=== PATIENT | female | born 1985 | race Hispanic/Latino ===

== ENCOUNTER 2017-07-02 18:19 | Emergency (ER) | payer SELFPAY | END 2017-07-02 18:45 | disposition left against medical advice (07) | LOC: ED 18:19 | DX: Z53.21 Procedure and treatment not carried out due to patient leaving prior to being seen by health care provider (principal) ==

== ENCOUNTER 2017-08-27 09:58 | Emergency (ER) | payer SELFPAY ==
[2017-08-27 10:04] VITALS: BP 133/75
[2017-08-27 10:45] LABS: Basophils % (Auto) 0.5 % (0.0-1.8); Eosinophils % (Auto) 0.4 % (0.0-4.3); Hematocrit 41.5 % (30.3-42.9); Hemoglobin 14.3 gm/dl (10.1-14.3); Lymphocytes # (Auto) 1.7 K/mm3 (1.2-5.4); Lymphocytes % (Auto) 20.7 % (13.4-35.0); Mean Corpuscular HGB Conc 34 % (30-34); Mean Corpuscular Hemoglobin 32 pg (28-32); Mean Corpuscular Volume 94 fl (79-97); Monocytes # (Auto) 0.4 K/mm3 (0.0-0.8); Monocytes % (Auto) 4.5 % (0.0-7.3); Platelet Count 240 K/mm3 (140-440); Red Blood Count 4.41 M/mm3 (3.65-5.03); Red Cell Distribution Width 13.4 % (13.2-15.2)
[2017-08-27 10:50] LABS: Bacteria,Urine 3+ /HPF (Negative); Bilirubin,Urine NEG (Negative); Blood,Urine LG (Negative); Color,Urine Yellow (Yellow); Mucus,Urine 3+ /HPF; Protein,Urine <15 mg/dL mg/dL (Negative)
[2017-08-27 11:04] LABS: Alanine Aminotransferase 9 units/L (7-56); Albumin 5.1 g/dL (3.9-5); BUN/Creatinine Ratio 14; Blood Urea Nitrogen 7 mg/dL (7-17); Calcium 9.5 mg/dL (8.4-10.2); Hemolysis Index 50
--- NOTE | 2017-08-27 13:44 | Emergency Department Report ---
HPI - General Chief Complaint: Abdominal Pain Time Seen by Provider: 08/27/17 13:41 - HPI HPI: 31-year-old presents with right flank pain, dysuria, for the past week worse today. No fever, no chills, no hematuria. She is currently on her menstrual cycle. Denies any chance of . ED Past Medical Hx - Past Medical History Hx Hypertension: No Hx Heart Attack/AMI: No Additional medical history: hypoglycemia, anemia - Surgical History Past Surgical History?: No - Social History Smoking Status: Current Every Day Smoker Substance Use Type: None - Medications Home Medications: Home Medications Medication Instructions Recorded Confirmed Last Taken Type Ibuprofen [Motrin 800 MG tab] 800 mg PO Q8HR PRN #30 tablet 01/27/16 Unknown Rx Cyclobenzaprine [Flexeril 10 MG 10 mg PO TID PRN #15 tablet 08/27/17 Unknown Rx TAB] Sulfamethoxazole/Trimethoprim 1 each PO BID #14 tablet 08/27/17 Unknown Rx [Bactrim DS TAB] ED Review of Systems ROS: Stated complaint: RIGHT SIDE ABD PAIN Other details as noted in HPI Comment: All other systems reviewed and negative Gastrointestinal: abdominal pain. denies: nausea, vomiting Genitourinary: dysuria. denies: frequency, hematuria Physical Exam - Physical Exam Vital Signs: Vital Signs 08/27/17 10:01 Temperature 98 F Pulse Rate 96 H Respiratory 18 Rate Blood Pressure 133/75 O2 Sat by Pulse 98 Oximetry Physical Exam: - Physical Exam Physical Exam: - General Limitations: No Limitations General appearance: alert, in no apparent distress, obese - Head Head exam: Present: atraumatic, normocephalic - Eye Eye exam: Present: normal appearance - ENT ENT exam: Present: mucous membranes moist - Neck Neck exam: Present: normal inspection - Respiratory Respiratory exam: Present: normal lung sounds bilaterally. Absent: respiratory distress - Cardiovascular Cardiovascular Exam: Present: normal rhythm, tachycardia. Absent: systolic murmur, diastolic murmur, rubs, gallop - GI/Abdominal GI/Abdominal exam: Present: soft, normal bowel sounds - Extremities Exam Extremities exam: Present: normal inspection - Back Exam Back exam: Present: normal inspection - Neurological Exam Neurological exam: Present: alert, oriented X3 - Psychiatric Psychiatric exam: normal affect and mood - Skin Skin exam: Present: warm, dry, intact, normal color. Absent: rash ED Course Vital Signs 08/27/17 10:01 Temperature 98 F Pulse Rate 96 H Respiratory 18 Rate Blood Pressure 133/75 O2 Sat by Pulse 98 Oximetry ED Medical Decision Making - Lab Data Result diagrams: 08/27/17 10:17 08/27/17 10:17 Critical care attestation.: If time is entered above; I have spent that time in minutes in the direct care of this critically ill patient, excluding procedure time. ED Disposition Clinical Impression: UTI (urinary tract infection) Qualifiers: Urinary tract infection type: acute cystitis Hematuria presence: without hematuria Qualified Code(s): N30.00 - Acute cystitis without hematuria Disposition: - TO HOME OR SELFCARE Is pt being admited?: No Does the pt Need Aspirin: No Condition: Stable Instructions: Abdominal Pain (ED) Prescriptions: Cyclobenzaprine [Flexeril 10 MG TAB] 10 mg PO TID PRN #15 tablet PRN Reason: Muscle Spasm Sulfamethoxazole/Trimethoprim [Bactrim DS TAB] 1 each PO BID #14 tablet Referrals: PRIMARY CARE, [Primary Care Provider] - 3-5 Days
== END 2017-08-27 13:50 | disposition home or self-care (01) ==
LOC: ED 09:58
DX: N30.00 Acute cystitis without hematuria (principal); F17.200 Nicotine dependence, unspecified, uncomplicated; E16.2 Hypoglycemia, unspecified; D64.9 Anemia, unspecified; Z88.0 Allergy status to penicillin
CPT/HCPCS: 36415; 80053; 81001; 84703; 85025; 99283

== ENCOUNTER 2017-12-19 20:35 | Emergency (ER) | payer SELFPAY ==
[2017-12-19 22:01] LABS: Hematocrit 39.7 % (30.3-42.9); Hemoglobin 13.5 gm/dl (10.1-14.3); Mean Corpuscular HGB Conc 34 % (30-34); Mean Corpuscular Hemoglobin 33 pg (28-32); Mean Corpuscular Volume 96 fl (79-97); Platelet Count 232 K/mm3 (140-440); Red Blood Count 4.16 M/mm3 (3.65-5.03); Red Cell Distribution Width 13.3 % (13.2-15.2)
[2017-12-19 22:12] LABS: BUN/Creatinine Ratio 17; Blood Urea Nitrogen 12 mg/dL (7-17); Calcium 9.6 mg/dL (8.4-10.2); Hemolysis Index 11
[2017-12-19 23:17] LABS: HCG Qualitative,Urine Negative (Negative)
[2017-12-19 23:23] LABS: Bilirubin,Urine NEG (Negative); Blood,Urine LG (Negative); Color,Urine Amber (Yellow); Hyaline Casts,Urine 1 /LPF; Mucus,Urine FEW /HPF
--- NOTE | 2017-12-19 23:52 | XRay Report ---
FINAL REPORT PROCEDURE: XR FOREARM RT TECHNIQUE: Right forearm radiographs, AP and lateral views. CPT 10860 HISTORY: swelling/pain r/t fall COMPARISON: No prior studies are available for comparison. FINDINGS: There appears to be mild cortical irregularity in the distal radius and ulna however this may represent a motion artifact. Cortical irregularity is visualized in the midshaft on 2 of the images including lateral image 5 series 1 however is seen in the distal 3rd of the shaft of both bones on image 7 series 1. Correlation with physical exam recommended. No cortical irregularity is seen on the lateral view image 1 series 1. Bone density appears normal. No radiopaque foreign bodies are identified. IMPRESSION: Limited study. Cortical irregularity seen in the shafts of the radius and ulna however the abnormality is seen in both the mid and distal 3rd of the shafts of the bones on different sequences. This could be due to motion artifact. Correlation with physical exam recommended. If clinically indicated follow-up exam could be obtained. Fracture is not entirely excluded.
--- NOTE | 2017-12-20 00:16 | Cat Scan Report ---
FINAL REPORT PROCEDURE: CT HEAD/BRAIN WO CON TECHNIQUE: Computerized tomography of the head was performed without contrast material. HISTORY: syncope/headache r/t injury COMPARISON: No prior studies are available for comparison. FINDINGS: Brain: Brain density appears normal. No evidence of intracranial hemorrhage. No parenchymal hemorrhage, mass lesions or mass effect are seen. No abnormal extraxial fluid collects or masses are seen. Ventricles: Ventricles are normal size and are midline. Bone Windows: No evidence of skull fracture. Paranasal sinuses: Visualized portions appear clear. Mastoid air cells: Clear IMPRESSION: Negative unenhanced CT scan of the brain.
--- NOTE | 2017-12-20 00:19 | Cat Scan Report ---
FINAL REPORT PROCEDURE: CT FACIAL BONES WO CON TECHNIQUE: Computerized tomography of the facial bones and soft tissues with axial and coronal sections performed from the cranial aspect of the frontal sinuses to the caudal portion of the mandible without contrast material. HISTORY: syncope/headache r/t injury COMPARISON: No prior studies are available for comparison. FINDINGS: No facial fractures are seen. The nasal bone, the orbits, zygomas, zygomatic arches, sheth of the paranasal sinuses and mandible are intact. Severe dental disease is incidentally noted. Paranasal sinuses are clear with the exception of opacification of 1 of the posterior ethmoid air cells on the right.. Nasal septum is midline. Elizabeth bullosa of the middle nasal turbinates are visualized. IMPRESSION: No evidence of facial fracture. Minimal paranasal sinus disease as described. Paranasal sinuses otherwise are clear.. Severe dental disease present.
--- NOTE | 2017-12-20 00:34 | Cat Scan Report ---
FINAL REPORT PROCEDURE: CT CERVICAL SPINE WO CON TECHNIQUE: Computerized tomography of the cervical spine was performed from the skull base to T1 without contrast material. HISTORY: syncope/headache r/t injury COMPARISON: No prior studies are available for comparison. FINDINGS: No fracture or subluxation is visualized. Prevertebral soft tissues appear normal. Posterior elements are intact. Bone density appears normal. No focal disc herniation or spinal stenosis is visualized. Disc spaces are well maintained. IMPRESSION: No acute or focal abnormalities are identified. No fracture or subluxation is seen. No focal disc herniation or spinal stenosis is identified.
[2017-12-20] MEDS ORDERED: TYLENOL PO ONE (10:30)
[2017-12-20] MEDS ORDERED: BOOSTRIX IM ONE (10:30)
[2017-12-20] MEDS ORDERED: MOTRIN PO ONE (10:31)
--- NOTE | 2017-12-20 10:31 | Emergency Department Report ---
ED Syncope HPI - General Chief Complaint: Syncope Stated Complaint: RT ARM PAIN Time Seen by Provider: 12/20/17 10:19 Source: patient, RN notes reviewed Exam Limitations: no limitations - History of Present Illness Initial Comments: This is a 32-year-old female who is unknown to this provider, does not have a primary care doctor, denies chronic medical conditions. Patient presents to the ER with a complaint of unprovoked syncope which happened at 6:00 PM last night. Patient indicates that she had mild frontal sinus headache, which was not sudden or thunderclap in nature, and did not reach maximal intensity within an hour. She reports that she lost consciousness, and landed on her right forearm. She has not had any episodes of syncope or loss of consciousness since then. The patient complains of frontal headache, paraspinal neck pain, and right forearm pain. Her pain is achy and sharp, increases with palpation and decreases with rest. There are no DVT or pulmonary embolus risk factors. Patient reports no chest pain or shortness of breath. Timing/Prior Episodes: recent history Context: standing Loss of Consciousness: brief (seconds) Current Symptoms: back to normal, headache, injury. denies: blurred vision, chest pain, diaphoresis, dizziness, lightheadedness, loss of bladder control, loss of bowel control, motionless, nausea, pale, shallow/rapid breathing, weak/ absent pulse, weakness - Related Data Allergies/Adverse Reactions: Allergies Penicillins Allergy (Verified 08/27/17 10:01) Vomiting Home Medications: Ambulatory Orders Ibuprofen [Motrin 800 MG tab] 800 mg PO Q8HR PRN #30 tablet 01/27/16 Cyclobenzaprine [Flexeril 10 MG TAB] 10 mg PO TID PRN #15 tablet 08/27/17 Sulfamethoxazole/Trimethoprim [Bactrim DS TAB] 1 each PO BID #14 tablet Acetaminophen [Tylenol Extra Strength] 500 mg PO Q6HR PRN #30 tablet 12/20/17 Ibuprofen [Motrin] 400 mg PO Q6HR PRN #30 tablet 12/20/17 ED Review of Systems ROS: Stated complaint: RT ARM PAIN Other details as noted in HPI Comment: All other systems reviewed and negative ED Past Medical Hx - Past Medical History Hx Hypertension: No Hx Heart Attack/AMI: No Additional medical history: hypoglycemia, anemia - Surgical History Additional Surgical History: IUD - Social History Smoking Status: Current Every Day Smoker Substance Use Type: None - Medications Home Medications: Home Medications Medication Instructions Recorded Confirmed Last Taken Type Ibuprofen [Motrin 800 MG tab] 800 mg PO Q8HR PRN #30 tablet 01/27/16 Unknown Rx Cyclobenzaprine [Flexeril 10 MG 10 mg PO TID PRN #15 tablet 08/27/17 Unknown Rx TAB] Sulfamethoxazole/Trimethoprim 1 each PO BID #14 tablet 08/27/17 Unknown Rx [Bactrim DS TAB] Acetaminophen [Tylenol Extra 500 mg PO Q6HR PRN #30 tablet 12/20/17 Unknown Rx Strength] Ibuprofen [Motrin] 400 mg PO Q6HR PRN #30 tablet 12/20/17 Unknown Rx ED Physical Exam - General Limitations: No Limitations General appearance: alert, in no apparent distress - Head Head exam: Present: atraumatic, normocephalic - Eye Eye exam: Present: normal appearance, PERRL, EOMI, other (visual acuity intact to finger counting, color perception, reading at a close distance). Absent: nystagmus - ENT ENT exam: Present: normal exam, normal orophraynx, mucous membranes moist, TM's normal bilaterally, normal external ear exam, other (there is no nasal septal hematoma. There is no hemotympanum) - Neck Neck exam: Present: normal inspection, full ROM. Absent: tenderness, meningismus - Respiratory Respiratory exam: Present: normal lung sounds bilaterally. Absent: respiratory distress - Cardiovascular Cardiovascular Exam: Present: regular rate, normal rhythm, normal heart sounds. Absent: bradycardia, tachycardia, irregular rhythm, systolic murmur, diastolic murmur, rubs, gallop - GI/Abdominal GI/Abdominal exam: Present: soft, normal bowel sounds. Absent: distended, tenderness, guarding, rebound, rigid, pulsatile mass - Extremities Exam Extremities exam: Present: normal inspection, full ROM, tenderness, normal capillary refill, other (compartments are soft. 2+ pulses noted in the upper, lower extremities, pelvis is stable, in the right upper extremity there is proximal forearm tenderness. The compartments are soft. Distal wrist range of motion intact in the bilateral upper extremities. Finger intrinsics intact in the bilateral upper extremities. There is no snuffbox tenderness.). Absent: pedal edema, joint swelling, calf tenderness - Back Exam Back exam: Present: normal inspection, full ROM. Absent: tenderness, CVA tenderness (R), paraspinal tenderness, vertebral tenderness - Neurological Exam Neurological exam: Present: alert, oriented X3, CN II-XII intact, normal gait, other (Extraocular movements intact. Tongue midline. No facial droop. Facial sensation intact to light touch in the V1, V2, V3 distribution bilaterally. 5 and 5 strength in 4 extremities.. Sensation is intact to light touch in 4 extremities.). Absent: motor sensory deficit - Psychiatric Psychiatric exam: Present: normal affect, normal mood - Skin Skin exam: Present: warm, abrasion ED Course Vital Signs 12/19/17 12/20/17 12/20/17 21:11 04:22 11:50 Temperature 98.2 F 98.3 F Pulse Rate 65 78 Respiratory 14 14 16 Rate Blood Pressure 112/72 122/68 O2 Sat by Pulse 100 99 Oximetry ED Medical Decision Making - Lab Data Result diagrams: 12/19/17 21:27 12/19/17 21:27 Vital Signs 12/19/17 12/20/17 12/20/17 21:11 04:22 11:50 Temperature 98.2 F 98.3 F Pulse Rate 65 78 Respiratory 14 14 16 Rate Blood Pressure 112/72 122/68 O2 Sat by Pulse 100 99 Oximetry Lab Results 12/19/17 12/19/17 12/19/17 Range/Units 21:27 21:27 Unknown WBC 11.9 H (4.5-11.0) K/mm3 RBC 4.16 (3.65-5.03) M/mm3 Hgb 13.5 (10.1-14.3) gm/dl Hct 39.7 (30.3-42.9) % MCV 96 (79-97) fl MCH 33 H (28-32) pg MCHC 34 (30-34) % RDW 13.3 (13.2-15.2) % Plt Count 232 (140-440) K/mm3 PT (12.2-14.9) Sec. INR (0.87-1.13) D-Dimer (0-234) ng/mlDDU Sodium 140 (137-145) mmol/L Potassium 3.5 L (3.6-5.0) mmol/L Chloride 102.3 (98-107) mmol/L Carbon Dioxide 24 (22-30) mmol/L Anion Gap 17 mmol/L BUN 12 (7-17) mg/dL Creatinine 0.7 (0.7-1.2) mg/dL Estimated GFR > 60 ml/min BUN/Creatinine Ratio 17 % Glucose 73 (65-100) mg/dL Calcium 9.6 (8.4-10.2) mg/dL Magnesium (1.7-2.3) mg/dL TSH (0.270-4.200) mlU/mL Urine Color [place] (Yellow) Urine Turbidity Clear (Clear) Urine pH 5.0 (5.0-7.0) Ur Specific [place] 1.043 H (1.003-1.030) Urine Protein 100 mg/dl (Negative) mg/dL Urine Glucose (UA) Neg (Negative) mg/dL Urine Ketones Tr (Negative) mg/dL Urine Blood Lg (Negative) Urine Nitrite Neg (Negative) Ur Reducing Substances Not Reportable Urine Bilirubin Neg (Negative) Urine Ictotest Not Reportable Urine Urobilinogen 2.0 (<2.0) mg/dL Ur Leukocyte Esterase Sm (Negative) Urine WBC (Auto) 5.0 (0.0-6.0) /HPF Urine RBC (Auto) 3.0 (0.0-6.0) /HPF U Epithel Cells (Auto) 6.0 (0-13.0) /HPF Hyaline Casts 1 /LPF Urine Mucus Few /HPF Urine HCG, Qual Negative (Negative) 12/20/17 12/20/17 12/20/17 Range/Units 10:41 10:41 10:41 WBC (4.5-11.0) K/mm3 RBC (3.65-5.03) M/mm3 Hgb (10.1-14.3) gm/dl Hct (30.3-42.9) % MCV (79-97) fl MCH (28-32) pg MCHC (30-34) % RDW (13.2-15.2) % Plt Count (140-440) K/mm3 PT 12.3 (12.2-14.9) Sec. INR 0.87 (0.87-1.13) D-Dimer 152.90 (0-234) ng/mlDDU Sodium (137-145) mmol/L Potassium (3.6-5.0) mmol/L Chloride (98-107) mmol/L Carbon Dioxide (22-30) mmol/L Anion Gap mmol/L BUN (7-17) mg/dL Creatinine (0.7-1.2) mg/dL Estimated GFR ml/min BUN/Creatinine Ratio % Glucose (65-100) mg/dL Calcium (8.4-10.2) mg/dL Magnesium 2.10 (1.7-2.3) mg/dL TSH 1.330 (0.270-4.200) mlU/mL Urine Color (Yellow) Urine Turbidity (Clear) Urine pH (5.0-7.0) Ur Specific [place] (1.003-1.030) Urine Protein (Negative) mg/dL Urine Glucose (UA) (Negative) mg/dL Urine Ketones (Negative) mg/dL Urine Blood (Negative) Urine Nitrite (Negative) Ur Reducing Substances Urine Bilirubin (Negative) Urine Ictotest Urine Urobilinogen (<2.0) mg/dL Ur Leukocyte Esterase (Negative) Urine WBC (Auto) (0.0-6.0) /HPF Urine RBC (Auto) (0.0-6.0) /HPF U Epithel Cells (Auto) (0-13.0) /HPF Hyaline Casts /LPF Urine Mucus /HPF Urine HCG, Qual (Negative) - EKG Data -: EKG Interpreted by Nv EKG shows normal: sinus rhythm, axis, intervals, QRS complexes, ST-T waves - EKG Data When compared to previous EKG there are: previous EKG unavailable Interpretation: normal EKG - Radiology Data Radiology results: report reviewed Noncontrast CT scan of the brain, cervical spine, facial bones negative for acute traumatic disease X-ray of the right forearm suggests possible fracture. - Medical Decision Making Differential diagnosis, including not limited to: Intracranial injury, facial injury, right upper extremity fracture, contusion, orthostasis, vagal event, structural cardiac disease, pulmonary embolus Assessment and plan: 32-year-old female with isolated episode of syncope. She is afebrile with reassuring vital signs, clinically sober, has a Trevon Coma Scale of 15, with an NIH score of 0. Laboratory studies were unremarkable including a negative d-dimer, has no pulmonary embolus or DVT risk factors, is low risk by well's criteria, and is perc negative Right upper extremity was placed in a sugar tong splint, she will be referred to outpatient orthopedics for questionable forearm fracture. She is distally neurovascularly intact without evidence of compartment syndrome. She reports a family history of cardiovascular disease, and was seen in consultation with Dr. Fredy Curtis who agreed to follow-up patient next week for further evaluation of syncope. It was explained to the patient that she should not drive or operate motor vehicles for the next 6 months, and she has a follow- up with the outpatient audit partner, Dr. Curtis, December 27, 1029 am Patient has been observed in the ER for hours of clinical decompensation and hemodynamically stable vital signs. Critical care attestation.: If time is entered above; I have spent that time in minutes in the direct care of this critically ill patient, excluding procedure time. ED Disposition Clinical Impression: Syncope, Right forearm pain Disposition: [id number] TO HOME OR SELFCARE Is pt being admited?: No Does the pt Need Aspirin: No Condition: Stable Instructions: Syncope (ED) Additional Instructions: Rest, and avoid heavy lifting. Avoid strenuous physical activity. X-ray of the right forearm suggested a right forearm fracture. Follow-up with the listed orthopedist, Dr. Lozano, or the orthopedist of your choosing within the next 5-7 days. Take the pain medication as needed/directed. Follow-up with the audit partner, Dr. Curtis, at 10:30 AM, December 27, in the [place] office. That is her appointment to follow-up for syncope/loss of consciousness. Do not drive or operate motor vehicles for the next [address] when cleared by cardiology or a primary care doctor. Return to the ER right away with new pain, worsened pain, migration of pain, fevers, chills, lethargy, irritability, projectile vomiting, change in mental status, confusion, inability to tolerate liquid feeds. Referrals: PRIMARY CARE, [Primary Care Provider] - 3-5 Days VIVEK LOZANO MD [Staff Physician] - 3-5 Days SKIP CURTIS MD [Staff Physician] - 3-5 Days [facility] [Provider Group] - 3-5 Days Forms: Work/School Release Form(ED)
[2017-12-20 11:10] LABS: INR 0.87 (0.87-1.13)
[2017-12-20 17:54] VITALS: BP 124/76
== END 2017-12-20 13:00 | disposition home or self-care (01) ==
LOC: ED 20:35
DX: R55 Syncope and collapse (principal); M79.631 Pain in right forearm; R51 Headache; F17.200 Nicotine dependence, unspecified, uncomplicated; Z88.0 Allergy status to penicillin; W19.XXXA Unspecified fall, initial encounter; Y93.89 Activity, other specified; Y99.8 Other external cause status; Y92.89 Other specified places as the place of occurrence of the external cause
CPT/HCPCS: 36415; 70450; 70486; 72125; 80048; 81001; 81025; 83735; 84443; 85027; 85379; 85610; 90471; 90715; 93005; 93010